=== PATIENT | male | born 1955 | race Caucasian/White ===

== ENCOUNTER 2017-05-23 11:41 | Day surgery (SDC) | payer BC ==
[2017-05-20 12:34] VITALS: BMI 24.3
[2017-05-23] MEDS ORDERED: CEFAZOLIN/Water 2 GM/20 ML SYRINGE ONE (12:57)
[2017-05-23] MEDS ORDERED: Fentanyl 100 MCG/2 ML VIAL ONE (13:23)
[2017-05-23] MEDS ORDERED: Midazolam HCl 2 mg/2 ml Vial ONE (13:23)
[2017-05-23] MEDS ORDERED: Bupivacaine/Epinephrine 0.25% 30 ML VIAL ONE (13:25)
[2017-05-23] MEDS ORDERED: Ondansetron HCl/PF 4 MG/2 ML Vial ONE (13:46)
[2017-05-23] MEDS ORDERED: Lidocaine 2% MPF 10 ML AMP (For Epidural Use) ONE (13:46)
[2017-05-23] MEDS ORDERED: Propofol 200 MG/20 ML VIAL ONE (13:46)
[2017-05-23] MEDS ORDERED: Dexamethasone 20 MG/5 ML VIAL ONE (13:46)
[2017-05-23] MEDS ORDERED: ePHEDrine/0.9% NaCl/PF SYRINGE 50 mg/10 ml ONE (13:46)
[2017-05-23] MEDS ORDERED: Glycopyrrolate 0.2 MG/ML 5 ML SYRINGE ONE (13:46)
[2017-05-23] MEDS ORDERED: Vecuronium 10 MG VIAL ONE (13:46)
[2017-05-23] MEDS ORDERED: PHENYLEPHRINE-NS 100 MCG/ML 10 ML SYRINGE ONE (13:46)
--- NOTE | 2017-05-23 15:57 | OP ---
DATE OF SURGERY: 05/23/2017 PREOPERATIVE DIAGNOSIS: Bilateral inguinal hernia. POSTOPERATIVE DIAGNOSIS: Bilateral inguinal hernia. PROCEDURE PERFORMED: Da Sagrario laparoscopic bilateral inguinal hernia repair with mesh, ProGrip, lar ge, bilateral. SURGEON: Tyron Lemons M.D. ANESTHESIA: General. ESTIMATED BLOOD LOSS: Minimal. COMPLICATIONS: None. SPECIMEN: None. FINDINGS: Bilateral inguinal hernia. TECHNIQUE: The patient was taken to the operating room after general anesthetic was obtained, Rodriguez was placed. The abdomen was shaved, and draped in a sterile fashion. Curved incision made above t he umbilicus. Cautery was used to dissect down to and score the fascia. Abdominal cavity was enter ed bluntly using a Maile clamp. A PDS was placed on each side of the fascia. Holding stitch in the 12-mm Ethicon trocar was placed. High-flow pneumoperitoneum was obtained. Left and right abdomina l 8 mm robot trocars were placed. The patient was placed in Trendelenburg position and all ports we re docked to the robot. The peritoneum was taken down 6 cm proximal to the inguinal crease in the b ilateral groin, dissected in the preperitoneal space. Pubic tubercle was exposed medially and the a nterior superior iliac crest laterally. There were large direct defects bilaterally, were dissected out of the fascial opening back high up on the peritoneum. The cord structures were skeletonized b ilaterally to reveal small indirect hernias that were dissected hernia sac high back up onto the per itoneum. Iliopectineal line was fully exposed. A ProGrip large mesh brought into the abdominal cav ity and the medial aspect was placed over the pubic tubercle medially bilaterally. The mesh was the n unrolled lateral to fully cover the femoral in direct and indirect areas, 2-0 Vicryl was used to a ffix the mesh to pubic tubercle medially. The peritoneum was closed using running 2-0 Stratafix. A ll port sites were infiltrated using local anesthetic. All ports were removed under camera visualiz ation. Pneumoperitoneum was let down. PDS was used to close the fascial defect above the umbilicus , 4-0 Monocryl, and Dermabond used to close all skin incisions. Patient went to recovery in stable condition. All instrument counts, needle counts, and lap counts were correct.
[2017-05-23] MEDS ORDERED: HYDROcodone/Acetaminophen 5/325 mg Tablet ONE (17:12)
== END 2017-05-23 17:42 | disposition home or self-care (01) ==
LOC: SDC 11:41
PROVIDERS: ATTEND Surgery
PROC: 0YUA4JZ Supplement Bilateral Inguinal Region with Synthetic Substitute, Percutaneous Endoscopic Approach (ICD-10-PCS; principal; 2017-05-23)
DX: K40.20 Bilateral inguinal hernia, without obstruction or gangrene, not specified as recurrent (principal); Z98.890 Other specified postprocedural states
CPT/HCPCS: S2900; J1100; J2001; J2250; J2405; J2704; J3010

== ENCOUNTER 2021-05-19 14:19 | Emergency (ER) | payer BC ==
[2021-05-19 15:21] LABS: #Basophils 0.1 thou/uL (0.0-0.2); #Eosinphils 0.2 thou/uL (0.0-0.7); #Lymphocytes 1.8 thou/uL (1.20-3.40); #Monocytes 0.7 thou/uL (0.11-0.59); #Neutrophils 5.1 thou/uL (1.40-6.50); %Basophils 1.6 % (0.0-1.0); %Eosinophils 2.9 % (0.0-10.0); %Monocytes 9.2 % (0.0-10.0); %Neutrophils 64.3 % (42.0-75.0); Hemoglobin 16.7 g/dL (14.0-18.0); Mean Corpuscular HGB CONC 33.9 g/dL (32.0-36.0); Mean Corpuscular Hemoglobin 31.4 pg (27.0-31.0); Mean Corpuscular Volume 92.4 fL (78.0-98.0); Mean Platelet Volume 8.1 fL (7.4-10.4); Platelet Count 258 thou/uL (130-400); RBC Distribution Width 12.7 % (11.5-14.5); Red Blood Cell (RBC) Count 5.31 mill/uL (4.70-6.10)
[2021-05-19 15:42] LABS: ALT (SGPT) 26 U/L (8-55); AST (SGOT) 21 U/L (5-34); Albumin 4.4 g/dL (3.4-4.8); Alkaline Phosphatase 94 U/L (40-110); Anion Gap 14 mmol/L (10-20); BUN (Urea Nitrogen) 18 mg/dL (8.4-25.7); Bilirubin, Total 0.5 mg/dL (0.2-1.2); CK (CPK) 73 U/L (30-200); Calc. Creatinine Clearance 0 mL/min (70-130); Carbon Dioxide 24 mmol/L (23-31); Chloride 103 mmol/L (98-107); Globulin 3.2 g/dL (2.4-3.5); Glucose 92 mg/dL (80-115); Potassium 4.3 mmol/L (3.5-5.1); Protein, Total 7.6 g/dL (5.8-8.1); Sodium 137 mmol/L (136-145)
[2021-05-19] MEDS ORDERED: Aspirin Chewable 81 MG TAB ONE (15:44)
[2021-05-19 15:57] LABS: Bilirubin Negative (Negative); Blood, Urine Negative (Negative); Clarity Clear (Clear); Glucose, Urine (Dipstick) Normal (Negative); Ketone, Urine Negative (Negative); Leukocyte Negative Leu/uL (Negative); Nitrite Negative (Negative); Protein, Urine (Dipstick) Negative (Neg-Trace); Specific Gravity, Urine 1.025 (1.002-1.036); Urobilinogen Normal mg/dL (Less than 2); pH, Urine 5.5 (5.0-9.0)
== END 2021-05-19 17:10 | disposition home or self-care (01) ==
LOC: ERS 14:19
DX: H53.2 Diplopia (principal); F17.210 Nicotine dependence, cigarettes, uncomplicated
CPT/HCPCS: 70450; 70551; 71045; 80053; 81003; 82550; 83735; 84484; 85025; 93005

== ENCOUNTER 2022-03-30 08:48 | Outpatient (CLI) | payer MEDICARE, BC ==
[~2022-03-30 08:48] MED LIST: Iopamidol 370 76% 100 ML VIAL ONE
== END 2022-03-30 08:49 | disposition home or self-care (01) ==
LOC: CT 08:48
PROVIDERS: ATTEND Student in an Organized Health Care Education/Training Program
DX: L02.91 Cutaneous abscess, unspecified (principal); J34.89 Other specified disorders of nose and nasal sinuses; M79.89 Other specified soft tissue disorders; L98.499 Non-pressure chronic ulcer of skin of other sites with unspecified severity
CPT/HCPCS: 70487; 82565; Q9967

== ENCOUNTER 2022-04-23 09:59 | Outpatient (CLI) | payer MEDICARE, BC ==
[2022-04-23 11:47] LABS: Hemoglobin 15.9 g/dL (13.5-17.5)
[2022-04-23 11:50] LABS: Anion Gap 14 mmol/L (10-20); BUN (Urea Nitrogen) 12 mg/dL (8.4-25.7); Calc. Creatinine Clearance 0 mL/min (70-130); Calcium 10.1 mg/dL (7.8-10.44); Carbon Dioxide 24 mmol/L (23-31); Chloride 104 mmol/L (98-107); Estimated GFR 76; Glucose 80 mg/dL (80-115); Potassium 4.7 mmol/L (3.5-5.1); Sodium 137 mmol/L (136-145)
== END 2022-04-23 10:00 | disposition home or self-care (01) ==
LOC: LABBT 09:59
PROVIDERS: ATTEND Student in an Organized Health Care Education/Training Program
DX: Z01.818 Encounter for other preprocedural examination (principal); C80.1 Malignant (primary) neoplasm, unspecified; L03.90 Cellulitis, unspecified; L71.1 Rhinophyma; Z87.891 Personal history of nicotine dependence
CPT/HCPCS: 80048; 85014; 85018; 93005; 93010

== ENCOUNTER 2022-04-27 07:18 | Day surgery (SDC) | payer MEDICARE, BC ==
[2022-04-26 09:19] VITALS: BMI 24.1
[2022-04-27] MEDS ORDERED: Lidocaine 1% (PF) 30 ML VIAL ONE (08:14)
[2022-04-27] MEDS ORDERED: EPINEPHrine 1 MG/ML AMP ONE (08:14)
[2022-04-27] MEDS ORDERED: fentaNYL Citrate/PF 100 MCG/2 ML SYRINGE ONE ×2 (08:20→12:10)
[2022-04-27] MEDS ORDERED: Rocuronium Bromide 10 MG/ML (10ML VIAL) ONE (08:48)
[2022-04-27] MEDS ORDERED: Ondansetron PF 4 MG/2 ML Vial ONE (08:48)
[2022-04-27] MEDS ORDERED: Dexamethasone 20 MG/5 ML VIAL ONE (08:48)
[2022-04-27] MEDS ORDERED: PHENYLEPHRINE-NS 100 MCG/ML 10 ML SYRINGE ONE (08:48)
[2022-04-27] MEDS ORDERED: PROPOFOL 200 MG/20 ML VIAL ONE (08:48)
[2022-04-27] MEDS ORDERED: ePHEDrine 50 MG/ML VIAL ONE (08:48)
[2022-04-27] MEDS ORDERED: Oxymetazoline HCl 0.05% (30 ML BOT) ONE (10:33)
[2022-04-27] MEDS ORDERED: CEFAZOLIN 1 GM VIAL ONE (12:49)
== END 2022-04-27 15:15 | disposition home or self-care (01) ==
LOC: SDC 07:18
PROVIDERS: ATTEND Student in an Organized Health Care Education/Training Program
PROC: 0HB4XZZ Excision of Neck Skin, External Approach (ICD-10-PCS; principal; 2022-04-27)
PROC: 0HB1XZZ Excision of Face Skin, External Approach (ICD-10-PCS; 2022-04-27)
PROC: 09BK8ZX Excision of Nasal Mucosa and Soft Tissue, Via Natural or Artificial Opening Endoscopic, Diagnostic (ICD-10-PCS; 2022-04-27)
PROC: 09BK0ZZ Excision of Nasal Mucosa and Soft Tissue, Open Approach (ICD-10-PCS; 2022-04-27)
DX: C44.321 Squamous cell carcinoma of skin of nose (principal); C44.41 Basal cell carcinoma of skin of scalp and neck; C44.329 Squamous cell carcinoma of skin of other parts of face; J34.0 Abscess, furuncle and carbuncle of nose; L71.1 Rhinophyma; F17.200 Nicotine dependence, unspecified, uncomplicated; Z79.2 Long term (current) use of antibiotics
CPT/HCPCS: 88305; 88331; 88332; J0171; J0690; J1100; J2001; J2405; J2704; J3490

== ENCOUNTER 2022-05-19 08:04 | Outpatient (CLI) | payer MEDICARE, BC | END 2022-05-19 08:05 | disposition home or self-care (01) | LOC: CT 08:04 | PROVIDERS: ATTEND Otolaryngology | DX: C44.91 Basal cell carcinoma of skin, unspecified (principal); R91.8 Other nonspecific abnormal finding of lung field; M79.9 Soft tissue disorder, unspecified; M89.9 Disorder of bone, unspecified; R59.0 Localized enlarged lymph nodes | CPT/HCPCS: 70487; 70491; 71260 ==

== ENCOUNTER 2022-06-08 12:30 | Outpatient (CLI) | payer MEDICARE, BC | END 2022-06-08 12:31 | disposition home or self-care (01) | LOC: CT 12:30 | PROVIDERS: ATTEND Otolaryngology | DX: C44.321 Squamous cell carcinoma of skin of nose (principal); C44.91 Basal cell carcinoma of skin, unspecified; M95.0 Acquired deformity of nose; I70.0 Atherosclerosis of aorta; I77.4 Celiac artery compression syndrome; K82.9 Disease of gallbladder, unspecified; E72.89 Other specified disorders of amino-acid metabolism | CPT/HCPCS: 75635; 82565; Q9967 ==

== ENCOUNTER 2022-06-16 12:20 | Outpatient (CLI) | payer MEDICARE, BC | END 2022-06-16 12:21 | disposition home or self-care (01) | LOC: CT 12:20 | PROVIDERS: ATTEND Otolaryngology | DX: C44.91 Basal cell carcinoma of skin, unspecified (principal); M95.0 Acquired deformity of nose; M79.9 Soft tissue disorder, unspecified | CPT/HCPCS: 70487; 82565 ==

== ENCOUNTER 2022-07-12 15:04 | Emergency (ER) | payer MEDICARE, BC ==
[2022-07-12] MEDS ORDERED: Benzocaine 20% Spray 60 ML CAN ONE (16:58)
== END 2022-07-12 17:32 | disposition home or self-care (01) ==
LOC: ERS 15:04
DX: K94.23 Gastrostomy malfunction (principal); Z87.891 Personal history of nicotine dependence
CPT/HCPCS: 71045; 99282

== ENCOUNTER 2022-08-03 07:34 | Outpatient (CLI) | payer MEDICARE, BC ==
[2022-08-03] MEDS ORDERED: Iopamidol-370 76% 500 ML 1 ML ONE (09:17)
== END 2022-08-03 07:35 | disposition home or self-care (01) ==
LOC: CT 07:34
PROVIDERS: ATTEND Radiology Radiation Oncology
DX: C76.0 Malignant neoplasm of head, face and neck (principal); Z98.890 Other specified postprocedural states
CPT/HCPCS: 70491; 71260; Q9967

== ENCOUNTER 2022-08-04 13:00 | Outpatient (CLI) | payer MEDICARE, BC ==
[~2022-08-04 13:00] MED LIST changes: -Iopamidol 370 76% 100 ML VIAL ONE; +Magnevist 469MG/ML 20 ML VIAL ONE
== END 2022-08-04 13:01 | disposition home or self-care (01) ==
LOC: TBSIIMAG 13:00
PROVIDERS: ATTEND Radiology Radiation Oncology
DX: C30.0 Malignant neoplasm of nasal cavity (principal)
CPT/HCPCS: 70553

== ENCOUNTER → 2023-04-13 | Day surgery (SDC) | payer MEDICARE, BC ==
[~2023-04-13] MED LIST changes: +FLU VACC QS2023(65UP)/MF59C/PF 60 MCG/0.5 ML SYRINGE IM ONE; +FLU VACC QS2023-24(6MOS UP)/PF 60 MCG/0.5 ML SYRINGE IM ONE; +Lidocaine 1% PF 5 ML VIAL ONE; -Magnevist 469MG/ML 20 ML VIAL ONE; +Midazolam HCl 2 mg/2 ml Vial ONE; +Sodium Bicarbonate 2.5 MEQ/5 ML VIAL ONE; +fentaNYL 50 mcg/mL 1 mL Vial ONE
[2023-04-13 08:37] LABS: #Basophils 0.1 thou/uL (0.0-0.2); #Eosinphils 0.3 thou/uL (0.0-0.7); #Monocytes 0.9 thou/uL (0.11-0.59); #Neutrophils 6.2 thou/uL (1.40-6.50); %Basophils 1.3 % (0.0-1.0); %Eosinophils 3.5 % (0.0-10.0); %Lymphocytes 4.9 % (21.0-51.0); Hematocrit 37.6 % (42.0-52.0); Hemoglobin 12.1 g/dL (14.0-18.0); Mean Corpuscular HGB CONC 32.2 g/dL (32.0-36.0); Mean Corpuscular Hemoglobin 28.2 pg (27.0-31.0); Mean Corpuscular Volume 87.6 fl (78.0-98.0); Mean Platelet Volume 9.5 fL (7.4-10.4); Platelet Count 382 10x3/uL (130-400); RBC Distribution Width 14.5 % (11.5-14.5); Red Blood Cell (RBC) Count 4.29 mill/uL (4.70-6.10); White Blood Cell (WBC) Count 7.9 10x3/uL (4.8-10.8)
[2023-04-13 08:51] LABS: INR-International Normal Ratio 0.9; PTT 33.6 sec (22.9-36.1); Prothrombin Time 11.9 sec (12.0-14.7)
== END ==
LOC: CT 08:20
PROVIDERS: ATTEND Radiology Radiation Oncology
PROC: 0BBG3ZX Excision of Left Upper Lung Lobe, Percutaneous Approach, Diagnostic (ICD-10-PCS; principal; 2023-04-13)
DX: C34.12 Malignant neoplasm of upper lobe, left bronchus or lung (principal); Z87.891 Personal history of nicotine dependence
CPT/HCPCS: 32408; 71045; 71046; 77012; 85025; 85610; 85730; 88333; 88334; 90694; G0008; J3010; 88305; 88341; 88342; 90471; 90686; J2250

== ENCOUNTER 2023-07-19 14:59 | Inpatient (IN) | payer MEDICARE, BC ==
[~2023-07-19 14:59] MED LIST changes: -FLU VACC QS2023(65UP)/MF59C/PF 60 MCG/0.5 ML SYRINGE IM ONE; -FLU VACC QS2023-24(6MOS UP)/PF 60 MCG/0.5 ML SYRINGE IM ONE; +Iopamidol-370 76% 500 ML MDV (1 ML CHARGE) ONE; -Lidocaine 1% PF 5 ML VIAL ONE; -Midazolam HCl 2 mg/2 ml Vial ONE; -Sodium Bicarbonate 2.5 MEQ/5 ML VIAL ONE; -fentaNYL 50 mcg/mL 1 mL Vial ONE
[2023-07-19 15:51] LABS: Hematocrit 22.7 % (42.0-52.0); Hemoglobin 7.6 g/dL (14.0-18.0); Manual Diff?? YES; Mean Corpuscular HGB CONC 33.5 g/dL (32.0-36.0); Mean Corpuscular Hemoglobin 30.8 pg (27.0-31.0); Mean Corpuscular Volume 91.9 fl (78.0-98.0); Mean Platelet Volume 12.3 fL (7.4-10.4); Red Blood Cell (RBC) Count 2.47 mill/uL (4.70-6.10)
[2023-07-19 15:57] LABS: Delete Auto Diff?? YES; Platelet Count 27 10x3/uL (130-400)
[2023-07-19 16:28] LABS: Anisocytosis SLIGHT = 6-15 cells HPF (0-5); Band 31 % (5-11); CellaVision Operator ID LAB.MJL; Dohle Bodies SLIGHT; Eosinophils 1 % (0-10); Hypochromia SLIGHT = 6-15 cells HPF (0-5); Large Platelets 7.4 % (0-5); Lymphocytes 6 % (21-51); Metamyelocyte 3 % (0-0); Monocytes 17 % (0-10); Myelocyte 1 % (0-0); Neutrophil 39 % (42-75); Platelet Adequacy Comment Platelets Decreased; Polychromasia SLIGHT = 2-3 cells HPF (0-2); Reflex for Review?? YES; Total Cell Count 108; Toxic Granulation MODERATE; Vacuoles SLIGHT
[2023-07-19 16:47] LABS: ALT (SGPT) 8 U/L (8-55); AST (SGOT) 6 U/L (5-34); Albumin 3.3 g/dL (3.4-4.8); Alkaline Phosphatase 109 U/L (40-110); Anion Gap 12 mmol/L (10-20); BUN (Urea Nitrogen) 18 mg/dL (8.4-25.7); Bilirubin, Total 0.7 mg/dL (0.2-1.2); Calc. Creatinine Clearance 0 mL/min (70-130); Calcium 10.5 mg/dL (7.8-10.44); Carbon Dioxide 22 mmol/L (23-31); Chloride 102 mmol/L (98-107); Estimated GFR 97; Globulin 2.9 g/dL (2.4-3.5); Glucose 103 mg/dL (80-115); Magnesium 1.4 mg/dL (1.6-2.6); Potassium 3.3 mmol/L (3.5-5.1); Protein, Total 6.2 g/dL (5.8-8.1); Sodium 133 mmol/L (136-145)
[2023-07-19] MEDS ORDERED: Dexamethasone 10 MG/ML VIAL ONE (17:11)
[2023-07-19] MEDS ORDERED: Sodium Chloride 0.9% 100 ML ONE (17:20)
[2023-07-19] MEDS ORDERED: Piperacillin/Tazobactam 3.375 GM VIAL ONE ×2 (17:20→17:21)
[2023-07-19] MEDS ORDERED: Acetaminophen 650 MG Suppository PR PRN (18:02)
[2023-07-19] MEDS ORDERED: Bisacodyl 10 MG SUPP PR PRN (18:02)
[2023-07-19] MEDS ORDERED: Ondansetron PF 4 MG/2 ML Vial IVP PRN (18:02)
[2023-07-19] MEDS ORDERED: Morphine 2 MG/ML VIAL SLOW IVP PRN (18:08)
[2023-07-19] MEDS ORDERED: Potassium Chloride 20 MEQ in Premix 1 BAG IVPB SCH (18:08)
[2023-07-19] MEDS ORDERED: Potassium Chloride 20 MEQ (100 mL) BAG ONE (18:33)
[2023-07-19] MEDS ORDERED: Magnesium 2 GM/50 ML(in water) 2 GM in Premix 1 BAG IVPB SCH (19:00)
[2023-07-20 07:03] LABS: Hematocrit 22.3 % (42.0-52.0); Hemoglobin 7.3 g/dL (14.0-18.0); Manual Diff?? YES; Mean Corpuscular HGB CONC 32.7 g/dL (32.0-36.0); Mean Corpuscular Hemoglobin 30.5 pg (27.0-31.0); Mean Corpuscular Volume 93.3 fl (78.0-98.0); RBC Distribution Width 19.4 % (11.5-14.5); Red Blood Cell (RBC) Count 2.39 mill/uL (4.70-6.10); White Blood Cell (WBC) Count 13.3 10x3/uL (4.8-10.8)
[2023-07-20 07:23] LABS: Platelet Count 18 10x3/uL (130-400)
[2023-07-20 07:24] LABS: Delete Auto Diff?? YES
[2023-07-20 07:27] LABS: Anion Gap 11 mmol/L (10-20); BUN (Urea Nitrogen) 20 mg/dL (8.4-25.7); Calc. Creatinine Clearance 86 mL/min (70-130); Calcium 10.7 mg/dL (7.8-10.44); Carbon Dioxide 23 mmol/L (23-31); Chloride 105 mmol/L (98-107); Estimated GFR 99; Glucose 102 mg/dL (80-115); Potassium 3.8 mmol/L (3.5-5.1); Sodium 135 mmol/L (136-145)
[2023-07-20 08:01] LABS: Band 8 % (5-11); CellaVision Operator ID lab.dlt; Eosinophils 1 % (0-10); Hypochromia SLIGHT = 6-15 cells HPF (0-5); Large Platelets 2.7 % (0-5); Lymphocytes 2 % (21-51); Macrocytosis SLIGHT = 6-15 cells HPF (0-5); Monocytes 6 % (0-10); Neutrophil 73 % (42-75); Other Cell Types 9.8; Platelet Adequacy Comment Platelets Decreased; Polychromasia SLIGHT = 2-3 cells HPF (0-2); Total Cell Count 112
[2023-07-20] MEDS: Pantoprazole 40 MG VIAL IVP SCH (08:11)
[2023-07-20] MEDS: Sodium Chloride 0.9% 1,000 ML IV SCH ×2 (09:20→22:18)
[2023-07-20] MEDS ORDERED: CEFAZOLIN 1 GM VIAL SLOW IVP ONE (12:03)
[2023-07-20] MEDS ORDERED: CEFAZOLIN 2 GM in Sodium Chloride 0.9% 100 ML IVPB SCH (12:30)
[2023-07-20] MEDS ORDERED: fentaNYL 50 mcg/mL 1 mL Vial ONE (13:04)
[2023-07-20] MEDS ORDERED: PROPOFOL 20 ML ONE ×3 (13:09→14:20)
[2023-07-20] MEDS ORDERED: Rocuronium Bromide 10 MG/ML (10ML VIAL) ONE (13:09)
[2023-07-20] MEDS ORDERED: Lidocaine 2% PF 5 ML VIAL ONE (13:09)
[2023-07-20] MEDS ORDERED: Bupivacaine 0.25% HCL 30 ML VIAL ONE (13:29)
[2023-07-20] MEDS ORDERED: EPINEPHrine 1 MG/ML VIAL ONE (13:29)
[2023-07-20] MEDS ORDERED: Ketamine In 0.9 % NaCl 50 MG/5 ML SYRINGE ONE (13:49)
[2023-07-20] MEDS ORDERED: Midazolam HCl 2 mg/2 ml Vial ONE (13:49)
[2023-07-20] MEDS ORDERED: PHENYLEPHRINE-NS 100 MCG/ML 10 ML SYRINGE ONE (14:16)
[2023-07-20] MEDS ORDERED: Morphine 2 MG/ML VIAL SLOW IVP PRN (15:02)
[2023-07-20 17:11] VITALS: BMI 18.7
[2023-07-20] MEDS: Nystatin 500,000 UNITS/5 ML UDCUP PO SCH (22:17)
[2023-07-20] MEDS: Morphine 4 MG/ML VIAL SLOW IVP PRN (22:19)
[2023-07-21] MEDS: Morphine 4 MG/ML VIAL SLOW IVP PRN (06:43)
[2023-07-21] MEDS: Nystatin 500,000 UNITS/5 ML UDCUP PO SCH (06:44)
[2023-07-21] MEDS: Pantoprazole 40 MG VIAL IVP SCH (06:44)
[2023-07-21] MEDS: Sodium Chloride 0.9% 1,000 ML IV SCH (12:37)
[2023-07-21 17:41] VITALS: BP 96/54; TEMP 97.6
[2023-07-22] MEDS ORDERED: FLU VACC QS2023(65UP)/MF59C/PF 60 MCG/0.5 ML SYRINGE IM ONE (09:00)
== END 2023-07-21 17:43 | disposition home or self-care (01) | DRG 146 ==
LOC: ERS 14:59 → OBSVTOIN 17:01 → T4-A 17:01
PROVIDERS: ADMIT Internal Medicine; ATTEND Hospitalist
PROC: 0DH67UZ Insertion of Feeding Device into Stomach, Via Natural or Artificial Opening (ICD-10-PCS; principal; 2023-07-20)
PROC: 6A550Z2 Pheresis of Platelets, Single (ICD-10-PCS; 2023-07-20)
PROC: 30233R1 Transfusion of Nonautologous Platelets into Peripheral Vein, Percutaneous Approach (ICD-10-PCS; 2023-07-20)
PROC: 3E033XZ Introduction of Vasopressor into Peripheral Vein, Percutaneous Approach (ICD-10-PCS; 2023-07-20)
DX: C11.9 Malignant neoplasm of nasopharynx, unspecified (principal); D61.810 Antineoplastic chemotherapy induced pancytopenia; C34.90 Malignant neoplasm of unspecified part of unspecified bronchus or lung; E44.0 Moderate protein-calorie malnutrition; Z68.1 Body mass index [BMI] 19.9 or less, adult; R62.7 Adult failure to thrive; E86.0 Dehydration; E87.6 Hypokalemia; E83.42 Hypomagnesemia; Z79.899 Other long term (current) drug therapy; Z98.890 Other specified postprocedural states; Z87.891 Personal history of nicotine dependence; Z82.49 Family history of ischemic heart disease and other diseases of the circulatory system; T45.1X5A Adverse effect of antineoplastic and immunosuppressive drugs, initial encounter; I10 Essential (primary) hypertension; R13.12 Dysphagia, oropharyngeal phase
CPT/HCPCS: 36430; 70470; 70491; 80048; 80053; 83735; 85025; 85060; 86850; 86900; 86901; 96361; 96365; 96367; 96375; 97139; C9113; J0171; J1100; J1642; J2001; J2250; J2270; J2272; J2543; J2704; J3010; J3475; J3480; J3490; J7050; P9035; Q9967; S0020

== ENCOUNTER 2023-08-02 08:45 | Outpatient (CLI) | payer MEDICARE, BC | END 2023-08-02 08:46 | LOC: PET 08:45 | PROVIDERS: ATTEND Internal Medicine Hematology & Oncology | DX: C30.0 Malignant neoplasm of nasal cavity (principal) | CPT/HCPCS: 78815; A9552 ==

== ENCOUNTER 2023-08-16 20:13 | Inpatient (IN) | payer MEDICARE, BC ==
[2023-08-16 21:59] LABS: Hematocrit 15.2 % (42.0-52.0); Hemoglobin 4.9 g/dL (14.0-18.0); Manual Diff?? YES; Mean Corpuscular HGB CONC 32.2 g/dL (32.0-36.0); Mean Corpuscular Hemoglobin 33.3 pg (27.0-31.0); Mean Corpuscular Volume 103.4 fl (78.0-98.0); Mean Platelet Volume 10.5 fL (7.4-10.4); Platelet Count 110 10x3/uL (130-400); RBC Distribution Width 23.6 % (11.5-14.5); Red Blood Cell (RBC) Count 1.47 mill/uL (4.70-6.10); White Blood Cell (WBC) Count 31.7 10x3/uL (4.8-10.8)
[2023-08-16 22:10] LABS: Delete Auto Diff?? YES
[2023-08-16 22:23] LABS: ALT (SGPT) 13 U/L (8-55); AST (SGOT) 16 U/L (5-34); Alkaline Phosphatase 148 U/L (40-110); Anion Gap 10 mmol/L (10-20); BUN (Urea Nitrogen) 15 mg/dL (8.4-25.7); Bilirubin, Total 0.2 mg/dL (0.2-1.2); Calc. Creatinine Clearance 0 mL/min (70-130); Carbon Dioxide 25 mmol/L (23-31); Chloride 102 mmol/L (98-107); Estimated GFR 93; Globulin 2.7 g/dL (2.4-3.5); Glucose 84 mg/dL (80-115); Potassium 4.1 mmol/L (3.5-5.1); Protein, Total 5.7 g/dL (5.8-8.1); Sodium 133 mmol/L (136-145)
[2023-08-16 22:27] LABS: Troponin I Less than 0.010 ng/mL (< 0.028)
[2023-08-16 22:40] LABS: Anisocytosis MODERATE=16-30 cells HPF (0-5); Band 17 % (5-11); CellaVision Operator ID LAB.CLH1; Eosinophils 1 % (0-10); Hypochromia MODERATE=16-30 cells HPF (0-5); Large Platelets 1.5 % (0-5); Lymphocytes 3 % (21-51); Macrocytosis SLIGHT = 6-15 cells HPF (0-5); Metamyelocyte 5 % (0-0); Monocytes 4 % (0-10); Myelocyte 2 % (0-0); Neutrophil 66 % (42-75); Nucleated RBC (Manual Ct) 2 % (0); Platelet Adequacy Comment Platelets Decreased; Polychromasia SLIGHT = 2-3 cells HPF (0-2); Promyelocytes 3 % (0-0); Stomatocytes SLIGHT = 2-5 cells HPF (0-1); Total Cell Count 131
[2023-08-16] MEDS ORDERED: Sodium Chloride 0.9% 100 ML ONE (22:54)
[2023-08-16] MEDS ORDERED: Cefepime 2 GM VIAL ONE (22:54)
[2023-08-16 22:58] LABS: Bacteria/HPF None Seen HPF (None Seen); Bilirubin Negative (Negative); Blood, Urine Negative (Negative); CAUTI Indications for Culture Alt mental st,lethar; Clarity Clear (Clear); Glucose, Urine (Dipstick) Normal (Negative); Ketone, Urine Negative (Negative); Leukocyte Negative Leu/uL (Negative); Nitrite Negative (Negative); Protein, Urine (Dipstick) Negative (Neg-Trace); RBC/HPF None Seen HPF (0-3); Specific Gravity, Urine 1.007 (1.002-1.036); Squamous Epithelial None Seen HPF (0-3); Urobilinogen Normal mg/dL (Less than 2); WBC/HPF 0-3 HPF (0-3); pH, Urine 6.5 (5.0-9.0)
[2023-08-16 23:00] LABS: Urine Culture Reflex No No
[2023-08-17] MEDS ORDERED: Sodium Chloride 0.9% 1,000 ML IV SCH (00:45)
[2023-08-17] MEDS ORDERED: Ondansetron PF 4 MG/2 ML Vial IVP PRN (00:45)
[2023-08-17] MEDS ORDERED: Acetaminophen 325 MG TAB PO PRN (00:45)
[2023-08-17] MEDS ORDERED: Ondansetron ODT 4 MG TAB SL PRN (00:45)
[2023-08-17] MEDS ORDERED: Vancomycin 1 GM/200 ML (FROZEN) BAG ONE (01:07)
[2023-08-17 01:19] LABS: SARS-CoV-2 NAA Rapid Test Not Detected (NotDetected)
[2023-08-17] MEDS ORDERED: Acetaminophen 325 MG TAB PER TUBE PRN (03:12)
[2023-08-17 03:33] VITALS: BMI 22.3
[2023-08-17 08:06] LABS: Hematocrit 21.5 % (42.0-52.0); Hemoglobin 7.4 g/dL (14.0-18.0); Manual Diff?? YES; Mean Corpuscular HGB CONC 34.4 g/dL (32.0-36.0); Mean Corpuscular Hemoglobin 32.6 pg (27.0-31.0); Mean Platelet Volume 10.3 fL (7.4-10.4); Platelet Count 125 10x3/uL (130-400); RBC Distribution Width 19.9 % (11.5-14.5); Red Blood Cell (RBC) Count 2.27 mill/uL (4.70-6.10); White Blood Cell (WBC) Count 32.6 10x3/uL (4.8-10.8)
[2023-08-17 08:09] LABS: Delete Auto Diff?? YES; Mean Corpuscular Volume 94.7 fl (78.0-98.0)
[2023-08-17 08:30] LABS: Anion Gap 6 mmol/L (10-20); BUN (Urea Nitrogen) 13 mg/dL (8.4-25.7); Calc. Creatinine Clearance 95 mL/min (70-130); Calcium 8.7 mg/dL (7.8-10.44); Carbon Dioxide 28 mmol/L (23-31); Chloride 106 mmol/L (98-107); Estimated GFR 95; Glucose 86 mg/dL (80-115); Potassium 4.2 mmol/L (3.5-5.1); Sodium 136 mmol/L (136-145)
[2023-08-17 08:45] LABS: Anisocytosis MODERATE=16-30 cells HPF (0-5); Band 15 % (5-11); Burr Cells SLIGHT = 2-5 cells HPF (0-1); CellaVision Operator ID LAB.KW3; Lymphocytes 1 % (21-51); Metamyelocyte 2 % (0-0); Monocytes 2 % (0-10); Neutrophil 80 % (42-75); Nucleated RBC (Manual Ct) 1 % (0); Platelet Adequacy Comment Platelets Decreased; Polychromasia SLIGHT = 2-3 cells HPF (0-2); Reactive Lymphocytes 1 % (0-10); Target Cells SLIGHT = 2-5 cells HPF (0-1); Total Cell Count 103
[2023-08-17] MEDS ORDERED: Vancomycin (BATCH) 1.25 GM in Premix 1 BAG IVPB SCH (09:00)
[2023-08-17] MEDS: Sodium Chloride 0.9% 1,000 ML IV SCH (10:29)
[2023-08-17] MEDS ORDERED: Cefepime 2 GM in Sodium Chloride 0.9% 100 ML IVPB SCH (12:00)
[2023-08-18 05:22] LABS: Hematocrit 22.7 % (42.0-52.0); Hemoglobin 7.6 g/dL (14.0-18.0); Manual Diff?? YES; Mean Corpuscular HGB CONC 33.5 g/dL (32.0-36.0); Mean Corpuscular Hemoglobin 32.5 pg (27.0-31.0); Mean Platelet Volume 9.8 fL (7.4-10.4); Platelet Count 177 10x3/uL (130-400); RBC Distribution Width 22.5 % (11.5-14.5); Red Blood Cell (RBC) Count 2.34 mill/uL (4.70-6.10); White Blood Cell (WBC) Count 28.3 10x3/uL (4.8-10.8)
[2023-08-18 05:38] LABS: Delete Auto Diff?? YES
[2023-08-18 05:46] LABS: Anion Gap 5 mmol/L (10-20); BUN (Urea Nitrogen) 12 mg/dL (8.4-25.7); Calc. Creatinine Clearance 101 mL/min (70-130); Calcium 8.9 mg/dL (7.8-10.44); Carbon Dioxide 27 mmol/L (23-31); Chloride 106 mmol/L (98-107); Estimated GFR 97; Glucose 85 mg/dL (80-115); Potassium 4.3 mmol/L (3.5-5.1); Sodium 134 mmol/L (136-145)
[2023-08-18 06:08] LABS: Anisocytosis MODERATE=16-30 cells HPF (0-5); Band 7 % (5-11); CellaVision Operator ID lab.sh2; Hypochromia SLIGHT = 6-15 cells HPF (0-5); Lymphocytes 2 % (21-51); Macrocytosis SLIGHT = 6-15 cells HPF (0-5); Monocytes 10 % (0-10); Neutrophil 81 % (42-75); Nucleated RBC (Manual Ct) 1 % (0); Platelet Adequacy Comment Platelets Normal; Polychromasia MODERATE = 3-4 cells HPF (0-2); Smudge Cells 2.9 %; Total Cell Count 102; Toxic Granulation MODERATE
[2023-08-18 07:22] VITALS: BP 119/58; TEMP 98.8
== END 2023-08-18 11:08 | disposition home or self-care (01) | DRG 812 ==
LOC: ERS 20:13 → ERHOLD 08-17 00:28 → 2NO 08-17 16:51 → OBSVTOIN 08-18 09:34
PROVIDERS: ADMIT Internal Medicine; ATTEND Emergency Medicine
PROC: 30233N1 Transfusion of Nonautologous Red Blood Cells into Peripheral Vein, Percutaneous Approach (ICD-10-PCS; principal; 2023-08-16)
DX: D64.9 Anemia, unspecified (principal); C78.00 Secondary malignant neoplasm of unspecified lung; C76.0 Malignant neoplasm of head, face and neck; I10 Essential (primary) hypertension; D69.6 Thrombocytopenia, unspecified; C11.9 Malignant neoplasm of nasopharynx, unspecified; E86.0 Dehydration; Z93.1 Gastrostomy status; Z79.899 Other long term (current) drug therapy; Z98.890 Other specified postprocedural states; Z87.891 Personal history of nicotine dependence; Z82.49 Family history of ischemic heart disease and other diseases of the circulatory system; Z11.52 Encounter for screening for COVID-19; C30.0 Malignant neoplasm of nasal cavity
CPT/HCPCS: 36415; 36430; 71045; 80048; 80053; 81001; 82248; 82274; 82607; 83605; 83615; 83880; 84100; 84439; 84443; 84484; 84550; 85025; 85046; 86850; 86900; 86901; 93005; G0378; J0692; J1642; J3370-JW; J3490; J7050; P9016

== ENCOUNTER 2024-02-03 11:00 | Outpatient (CLI) | payer MEDICARE, BC | END 2024-02-03 11:01 | disposition home or self-care (01) | LOC: PET 11:00 | PROVIDERS: ATTEND Internal Medicine Hematology & Oncology | DX: C30.0 Malignant neoplasm of nasal cavity (principal); C79.89 Secondary malignant neoplasm of other specified sites; R91.8 Other nonspecific abnormal finding of lung field | CPT/HCPCS: 78815; A9552 ==

== ENCOUNTER 2024-05-22 09:30 | Outpatient (CLI) | payer MEDICARE, BC | END 2024-05-22 09:31 | LOC: PET 09:30 | PROVIDERS: ATTEND Internal Medicine Hematology & Oncology | DX: C30.0 Malignant neoplasm of nasal cavity (principal) | CPT/HCPCS: 78815; A9552 ==

== ENCOUNTER 2025-03-07 09:30 | Outpatient (CLI) | payer MEDICARE, BC | END 2025-03-07 09:31 | disposition home or self-care (01) | LOC: PET 09:30 | PROVIDERS: ATTEND Internal Medicine Hematology & Oncology | DX: C30.0 Malignant neoplasm of nasal cavity (principal); E07.89 Other specified disorders of thyroid; E88.9 Metabolic disorder, unspecified | CPT/HCPCS: 78815; A9552 ==